=== PATIENT | male | born 1995 | race African-American/Black ===

== ENCOUNTER 2023-10-30 13:33 | Emergency (ER) | payer MEDICAID ==
[~2023-10-30] VITALS: Ht 175.3 cm; Wt 78.0 kg
[2023-10-30 13:42] VITALS: BP 124/66; PULSE 68; RESP 16; TEMP 97.6; O2SAT 100
[2023-10-30] MEDS ORDERED: LORAZEPAM 0.5MG TABLET PO ONE (14:30)
[2023-10-30] MEDS ORDERED: IBUP-2030 MT (14:40)
[2023-10-30] MEDS: LORAZEPAM 0.5MG TABLET PO NR (15:26)
== END 2023-10-30 15:38 | disposition home or self-care (01) ==
LOC: ER 13:33
DX: S00.83XA Contusion of other part of head, initial encounter (principal); J45.909 Unspecified asthma, uncomplicated; I10 Essential (primary) hypertension; X58.XXXA Exposure to other specified factors, initial encounter; Y93.89 Activity, other specified; Y92.89 Other specified places as the place of occurrence of the external cause; Y99.8 Other external cause status
CPT/HCPCS: 70110; 99283